=== PATIENT | male | born 2005 | race African-American/Black ===

== ENCOUNTER 2025-03-28 14:19 | Emergency (ER) | payer BC, SELFPAY ==
[2025-03-28 14:22] VITALS: BP 132/83; PULSE 85; RESP 16; TEMP 36.7; O2SAT 100
[2025-03-28 15:01] LABS: EDSTREPNEGPOS1 Positive (Negative)
--- NOTE | 2025-03-28 19:09 | ED_ITS ---
HPI - URI/Sore Throat General Chief Complaint: Upper Respiratory Infection Stated Complaint: Lump on Throat Time Seen by Provider: 03/28/25 14:45 Source: patient and RN notes reviewed Mode of arrival: ambulatory Limitations: no limitations History of Present Illness HPI Narrative: 19-year-old male presents [facility] complaining of sore throat, pain with swelling and a lump in his throat for approximately 2 weeks. Patient denies any cough, congestion, fever, body aches, chills, or any other symptoms. Patient has tried Tylenol and ibuprofen without relief. Patient feels like his neck is swollen. Patient denies any difficulty breathing, difficulty swallowing, pain or swelling under his tongue, or difficulty clearing secretions. Related Data Allergies Allergy/AdvReac Type Severity Reaction Status Date / Time No Known Allergies Allergy Verified 03/28/25 14:57 Review of Systems Review of Systems: CONSTITUTIONAL: Denies fever, chills, body aches, or sweats. EYES: Denies visual changes, redness, or discharge. ENT: Negative for for rhinorrhea, congestion,, difficulty clearing secretions, excessive drooling, dysphagia, or otalgia. Positive for sore throat. CARDIOVASCULAR: Denies chest pain, palpitations, or edema. RESPIRATORY: Negative for cough or dyspnea. GASTROINTESTINAL: Denies abdominal pain, nausea, vomiting, or diarrhea. GENITOURINARY: Denies dysuria or hematuria. SKIN: Denies rash or itching. MUSCULOSKELETAL: Denies back pain, joint pain, or myalgia. NEUROLOGIC: Denies headache, numbness, or weakness. PSYCHIATRIC: Denies anxiety or depression. All other systems reviewed are negative, except as documented in HPI. PMFSH Comments At the time of my signature, I reviewed and agree with the nursing past medical, surgical, social, and family history. There is no relevant family history pertinent to the patient complaint. Exam Narrative: GENERAL: This is a well-nourished, well-developed adult, in no apparent distress. They are non ill-appearing, nontoxic appearing. HEAD: normocephalic, atraumatic. EYES: Sclera clear/white. Vision is grossly intact. Conjunctiva normal bilaterally. Extraocular movements intact. EARS: External ears normal, auditory canals clear and without drainage, TMs without erythema or perforation. Hearing grossly intact. NOSE: External nose normal with no obvious nasal discharge, nasal turbinates without redness or swelling, no rhinorrhea. THROAT: Mucous membranes moist, posterior pharynx erythematous without exudate. Uvula is midline. OROPHARYNX: Good dentition, no tooth decay, known gingivitis, no area of fluctuance, redness, or swelling. No pain or swelling under the tongue. No tongue protrusion. No trismus. NECK: Neck supple, mild cervical lymphadenopathy, no masses or thyromegaly. CARDIOVASCULAR: Regular rate and rhythm without murmurs, gallops, or rubs. RESPIRATORY: Clear to auscultation. Breath sounds equal bilaterally. No wheezes, rales, or rhonchi. SKIN: warm, Dry, intact with no suspicious lesions or rash, good texture and turgor. NEURO: awake, alert, and oriented to person, place and time. There were no obvious focal neurologic abnormalities. EXTREMITIES: No joint tenderness, effusion, or edema noted. BACK: Nontender without deformity. Course Course Emergency Course: Portions of this record may have been created with voice recognition software Level of Care: Express Care Visit Vital Signs Vital signs: Vital Signs Temperature 98.1 F 03/28/25 14:22 Pulse Rate 85 03/28/25 14:22 Respiratory Rate 16 03/28/25 14:22 Blood Pressure 132/83 03/28/25 14:22 Pulse Oximetry 100 03/28/25 14:22 Oxygen Delivery Room Air 03/28/25 14:22 Temperature 98.1 F 03/28/25 14:22 Pulse Rate 85 03/28/25 14:22 Respiratory Rate 16 03/28/25 14:22 Blood Pressure 132/83 03/28/25 14:22 Pulse Oximetry 100 03/28/25 14:22 Oxygen Delivery Room Air 03/28/25 14:22 MDM - URI/Sore Throat MDM Narrative Medical decision making narrative: Rapid strep positive. Symptoms consistent with strep pharyngitis. Will treat with amoxicillin. Discussed physical exam findings. Advised supportive measures and signs/symptoms to go to the ER. Pt is appropriate for outpt treatment and f/u. Differential Diagnosis Differential diagnosis: Likely upper respiratory infection, viral infection and pharyngitis Lab Data Attestation: I reviewed the patient's lab results. Labs: Lab Results 03/28/25 Range/Units 14:35 POC Grp A Strep Screen Positive (Negative) Discharge Plan Discharge Clinical Impression: Pharyngitis Qualifiers: Pharyngitis/tonsillitis etiology: streptococcus Qualified Code(s): J02.0 - Streptococcal pharyngitis Patient Disposition: Home Condition: Stable Instructions: Antibiotic Form, Pharyngitis (ED) Additional Instructions: You tested positive for strep throat. ?Please take the amoxicillin as prescribed until gone. ?You will be contagious for 24 hours after starting the medication. ?After 24 hours on antibiotics throw tooth brush away and start using a new one. Wash your sheets and cup/water bottle that is used daily. Do not share drinks. Take Tylenol or Ibuprofen for pain or fever, if able. ?Rest and stay hydrated. ?Follow up with your PCP in 3 days if symptoms are not improving. ?Go to the ER immediately if you develop worsening symptoms such as shortness of breath, difficulty clearing secretions, excessive drooling, swelling or pain under the tongue, difficulty swallowing, or any serious concerns. ? Patient Language: Vietnamese Prescriptions: New amoxicillin 500 mg tablet 500 mg PO Q12H Qty: 10 0RF Follow-up/Referrals: PHYSICIAN,REGISTERED NURSE HH CASE MANAGER [Primary Care Provider] - Time of Disposition: 15:06
== END 2025-03-28 15:10 | disposition home or self-care (01) ==
DX: J02.0 Streptococcal pharyngitis (principal)
CPT/HCPCS: 87880; 99203; G0463